=== PATIENT | male | born 1965 | race Caucasian/White ===

== ENCOUNTER 2023-01-25 14:18 | Emergency (ER) | payer OTHER ==
[~2023-01-25] VITALS: Ht 170.2 cm; Wt 68.0 kg
[2023-01-25 15:34] VITALS: BP 139/79
[2023-01-25] MEDS ORDERED: ACET-1080 PO (15:57)
== END 2023-01-25 16:15 | disposition home or self-care (01) ==
LOC: ER 14:18 → EDBD 14:18 → ER 16:15
DX: S16.1XXA Strain of muscle, fascia and tendon at neck level, initial encounter (principal); S83.92XA Sprain of unspecified site of left knee, initial encounter; V43.52XA Car driver injured in collision with other type car in traffic accident, initial encounter; Y93.89 Activity, other specified; Y92.488 Other paved roadways as the place of occurrence of the external cause; Y99.8 Other external cause status
CPT/HCPCS: 72040; 73562